=== PATIENT | female | born 1935 | race Caucasian/White ===

== ENCOUNTER 2016-10-18 21:52 | Emergency (ER) | payer MEDICAID, OTHER ==
[~2016-10-18] VITALS: Ht 165.1 cm; Wt 58.6 kg
[~2016-10-18 21:52] MED LIST: ASPI81TA81 PO; ATOR10TA15 PO; CARV3.12 PO; CLON0.5T PO; CLOP75TA PO; ERGO1CAP10 PO; MEMA1TAB2 PO; RAMI2.5C PO; TRAM50TA PO; VENL37.5 PO
[2016-10-18 22:15] VITALS: BP 95/54; PULSE 85; RESP 16; TEMP 99.2; O2SAT 97
[2016-10-18 23:26] VITALS: BP 116/53; PULSE 75; TEMP 99.2
[2016-11-17] MEDS ORDERED: MELA1TAB18 PO (11:26)
[2016-12-15] MEDS ORDERED: CARV3.12 PO (12:06)
[2016-12-15] MEDS ORDERED: CLOP75TA PO (12:07)
== END 2016-10-19 00:09 | disposition left against medical advice (07) ==
LOC: PHED 21:52
DX: R50.9 Fever, unspecified (principal)
CPT/HCPCS: 99281